=== PATIENT | female | born 1985 | race Caucasian/White ===

== ENCOUNTER 2019-04-30 20:07 | Emergency (ER) | payer BC, OTHER ==
[2019-04-30] MEDS ORDERED: Ondansetron ODT 4 MG TAB ONE (20:24)
[2019-04-30] MEDS ORDERED: Loperamide HCl 2 MG CAP ONE (20:24)
== END 2019-04-30 20:35 | disposition home or self-care (01) ==
LOC: MADERS 20:07
DX: K52.9 Noninfective gastroenteritis and colitis, unspecified (principal); E78.00 Pure hypercholesterolemia, unspecified; E11.9 Type 2 diabetes mellitus without complications; F41.9 Anxiety disorder, unspecified
CPT/HCPCS: 99283; Q0162

== ENCOUNTER 2020-04-20 20:18 | Emergency (ER) | payer BC ==
[2020-04-20] MEDS ORDERED: Lidocaine 1% 20 ML MDV ONE (20:33)
[2020-04-20] MEDS ORDERED: Boostrix 0.5 ML VIAL ONE (20:33)
[2020-04-20] MEDS ORDERED: Bacitracin 1 PK ONE (21:18)
== END 2020-04-20 21:25 | disposition home or self-care (01) ==
LOC: MADERS 20:18
DX: S61.213A Laceration without foreign body of left middle finger without damage to nail, initial encounter (principal); E11.9 Type 2 diabetes mellitus without complications; F41.9 Anxiety disorder, unspecified; W26.0XXA Contact with knife, initial encounter
CPT/HCPCS: 12001; 90471; 90715

== ENCOUNTER 2021-02-23 11:55 | Emergency (ER) | payer BC ==
[2021-02-23] MEDS ORDERED: Boostrix 0.5 ML (Tdap) VIAL ONE (12:44)
[2021-02-23] MEDS ORDERED: Triple Antibiotic Oint 1 GM Packet ONE (12:44)
== END 2021-02-23 12:52 | disposition home or self-care (01) ==
LOC: MADERS 11:55
DX: S91.332A Puncture wound without foreign body, left foot, initial encounter (principal); E11.9 Type 2 diabetes mellitus without complications; E28.2 Polycystic ovarian syndrome; Z79.84 Long term (current) use of oral hypoglycemic drugs; W45.0XXA Nail entering through skin, initial encounter
CPT/HCPCS: 90471; 90715

== ENCOUNTER 2021-06-17 14:08 | Emergency (ER) | payer BC ==
[~2021-06-17 14:08] MED LIST: Iopamidol 370 76% 100 ML VIAL ONE
[2021-06-17] MEDS ORDERED: Sodium Chloride 0.9% 1,000 ML ONE (18:03)
[2021-06-17] MEDS ORDERED: Pantoprazole 40 MG VIAL ONE (18:03)
[2021-06-17] MEDS ORDERED: Ondansetron PF 4 MG/2 ML Vial ONE (18:03)
[2021-06-17 18:13] LABS: Bilirubin Negative (Negative); Blood, Urine Negative (Negative); Glucose, Urine (Dipstick) 500 mg/dL (Negative); Ketone, Urine Trace mg/dL (Negative); Leukocyte Trace (Negative); Nitrite Negative (Negative); Protein, Urine (Dipstick) Trace mg/dL (Neg-Trace); Urobilinogen 0.2 mg/dL (Less than 2); pH, Urine 5.5 (5.0-9.0)
[2021-06-17 18:26] LABS: Clarity Hazy (Clear); Specific Gravity, Urine 1.033 (1.002-1.036)
[2021-06-17 18:34] LABS: Bacteria/HPF 1+ HPF (None Seen); RBC/HPF 0-3 HPF (0-3)
[2021-06-17 18:37] LABS: ALT (SGPT) 20 U/L (8-55); AST (SGOT) 18 U/L (5-34); Albumin 3.7 g/dL (3.5-5.0); Alkaline Phosphatase 80 U/L (40-110); Anion Gap 13 mmol/L (10-20); BUN (Urea Nitrogen) 10 mg/dL (7.0-18.7); Bilirubin, Total 0.2 mg/dL (0.2-1.2); Calc. Creatinine Clearance 0 mL/min (70-130); Calcium 9.2 mg/dL (7.8-10.44); Carbon Dioxide 24 mmol/L (22-29); Chloride 104 mmol/L (98-107); Globulin 3.6 g/dL (2.4-3.5); Glucose 237 mg/dL (70-105); Lipase 23 U/L (8-78); Protein, Total 7.3 g/dL (6.0-8.3); Sodium 137 mmol/L (136-145)
[2021-06-17 18:38] LABS: #Basophils 0.1 thou/uL (0.0-0.2); #Eosinphils 0.2 thou/uL (0.0-0.7); #Lymphocytes 4.5 thou/uL (1.20-3.40); #Monocytes 0.6 thou/uL (0.11-0.59); #Neutrophils 8.7 thou/uL (1.40-6.50); %Basophils 0.6 % (0.0-1.0); %Eosinophils 1.2 % (0.0-10.0); %Lymphocytes 32.1 % (21.0-51.0); %Monocytes 4.2 % (0.0-10.0); %Neutrophils 61.9 % (42.0-75.0); Anisocytosis SLIGHT = 6-15 cells (100X) (0-5/hpf); CRP (Inflammatory) 1.74 mg/dL (= or < 0.5); Hemoglobin 12.9 g/dL (12.0-16.0); Hypochromia SLIGHT = 6-15 cells (100X) (0-5/hpf); MDiff Complete? YES; Mean Corpuscular HGB CONC 30.4 g/dL (32.0-36.0); Mean Corpuscular Hemoglobin 23.9 pg (27.0-31.0); Mean Corpuscular Volume 78.7 fL (78.0-98.0); Platelet Count 355 thou/uL (130-400); Platelet Morphology Comment Appears Adequate; RBC Distribution Width 14.7 % (11.5-14.5); Red Blood Cell (RBC) Count 5.37 mill/uL (4.20-5.40)
[2021-06-17 18:41] LABS: BHCG - Serum Negative (NEGATIVE); Pregs Control Background? CLEAR/WHITE (CLR/WHITE); Pregs Control Bar Appear? YES (CONTROL BAR)
[2021-06-17] MEDS ORDERED: metroNIDAZOLE 250 MG TAB ONE (19:59)
[2021-06-17] MEDS ORDERED: Piperacillin/Tazobactam 3.375 GM VIAL ONE (19:59)
[2021-06-17] MEDS ORDERED: Sodium Chloride 0.9% 100 ML ONE (20:00)
== END 2021-06-17 20:42 | disposition home or self-care (01) ==
LOC: MADERS 14:08
DX: I88.0 Nonspecific mesenteric lymphadenitis (principal); E11.9 Type 2 diabetes mellitus without complications
CPT/HCPCS: 71045; 74177; 80053; 81003; 81015; 82150; 82550; 83690; 84484; 84703; 85025; 86140; 93005; 96365; 96375; C9113; J2405; J2543; J3490; J7050; Q9967

== ENCOUNTER 2023-02-12 18:02 | Emergency (ER) | payer BC ==
[~2023-02-12 18:02] MED LIST changes: -Iopamidol 370 76% 100 ML VIAL ONE; +Iopamidol 370 76% 200 ML VIAL ONE; +Sodium Chloride 0.9% 100 ML BAG ONE
[2023-02-12] MEDS ORDERED: Sodium Chloride 0.9% 1,000 ML ONE (19:51)
[2023-02-12] MEDS ORDERED: Metoclopramide HCl 10 MG/2 ML VIAL ONE (19:51)
[2023-02-12 20:12] LABS: #Basophils 0.1 thou/uL (0.0-0.2); #Eosinphils 0.1 thou/uL (0.0-0.7); #Lymphocytes 0.9 thou/uL (1.20-3.40); #Monocytes 0.5 thou/uL (0.11-0.59); #Neutrophils 11.3 thou/uL (1.40-6.50); %Basophils 0.8 % (0.0-1.0); %Lymphocytes 6.8 % (21.0-51.0); %Monocytes 3.5 % (0.0-10.0); %Neutrophils 87.9 % (42.0-75.0); Hematocrit 43.8 % (36.0-47.0); Hemoglobin 13.6 g/dL (12.0-16.0); MDiff Complete? YES; Mean Corpuscular Hemoglobin 24.4 pg (27.0-31.0); Mean Corpuscular Volume 78.8 fl (78.0-98.0); Mean Platelet Volume 10.5 fL (7.4-10.4); Ovalocytes SLIGHT = 2-5 cells (100X) (0-1/hpf); Platelet Adequacy Comment Appears Adequate; Platelet Count 342 10x3/uL (130-400); RBC Distribution Width 15.4 % (11.5-14.5); Red Blood Cell (RBC) Count 5.56 mill/uL (4.20-5.40); White Blood Cell (WBC) Count 12.8 10x3/uL (4.8-10.8)
[2023-02-12 20:24] LABS: ALT (SGPT) 11 U/L (8-55); AST (SGOT) 16 U/L (5-34); Albumin 4.4 g/dL (3.5-5.0); Alkaline Phosphatase 74 U/L (40-110); Anion Gap 17 mmol/L (10-20); BUN (Urea Nitrogen) 11 mg/dL (7.0-18.7); Bilirubin, Total 0.5 mg/dL (0.2-1.2); Calc. Creatinine Clearance 0 mL/min (70-130); Carbon Dioxide 17 mmol/L (22-29); Chloride 108 mmol/L (98-107); Estimated GFR 92; Globulin 3.1 g/dL (2.4-3.5); Glucose 144 mg/dL (70-105); Potassium 4.9 mmol/L (3.5-5.1); Protein, Total 7.5 g/dL (6.0-8.3); Sodium 137 mmol/L (136-145)
[2023-02-12 20:30] LABS: Troponin I Less than 0.010 ng/mL (< 0.028)
[2023-02-12 20:47] LABS: SARS-CoV-2 NAA Rapid Test Not Detected (NotDetected)
[2023-02-12 21:16] LABS: Bilirubin Negative (Negative); Blood, Urine Negative (Negative); Glucose, Urine (Dipstick) >=1000 mg/dL (Negative); Ketone, Urine 40 mg/dL (Negative); Leukocyte Small (Negative); Nitrite Negative (Negative); Protein, Urine (Dipstick) Negative (Neg-Trace); Urobilinogen 0.2 mg/dL (Less than 2)
[2023-02-12] MEDS ORDERED: Acetaminophen 500 MG TAB ONE (21:16)
[2023-02-12 21:17] LABS: Pregnancy Test - Urine (BHCG) Negative (Negative); Pregu Control Background? CLEAR/WHITE (CLR/WHITE); Pregu Control Bar Appear? YES (CONTROL BAR)
[2023-02-12 21:19] LABS: Bacteria/HPF 2+ HPF (None Seen); CAUTI Indications for Culture Dysuria,urgency,freq; Clarity Cloudy (Clear); RBC/HPF 0-3 HPF (0-3); WBC/HPF 21-50 HPF (0-3)
[2023-02-12 21:20] LABS: Urine Culture Reflex Yes Yes
== END 2023-02-12 23:21 | disposition home or self-care (01) ==
LOC: MADERS 18:02
DX: N39.0 Urinary tract infection, site not specified (principal); I10 Essential (primary) hypertension; E78.5 Hyperlipidemia, unspecified; Z79.899 Other long term (current) drug therapy; Z79.84 Long term (current) use of oral hypoglycemic drugs; Z20.822 Contact with and (suspected) exposure to COVID-19
CPT/HCPCS: 71275; 74177; 80053; 81001; 81025; 84484; 85025; 85379; 87086; 93005; 96361; 96374; J2765; J7050; U0002

== ENCOUNTER 2024-04-06 17:27 | Emergency (ER) | payer BC ==
[2024-04-06] MEDS ORDERED: Ketorolac Tromethamine 30 MG (1 mL) VIAL ONE (18:03)
[2024-04-06] MEDS ORDERED: Methocarbamol 500 MG TAB ONE (18:06)
[2024-04-06] MEDS ORDERED: Diazepam 5 MG TAB ONE (19:00)
== END 2024-04-06 19:05 | disposition home or self-care (01) ==
LOC: MADERS 17:27
DX: M54.50 Low back pain, unspecified (principal); I10 Essential (primary) hypertension; E11.9 Type 2 diabetes mellitus without complications; E78.5 Hyperlipidemia, unspecified; Z79.84 Long term (current) use of oral hypoglycemic drugs; Z79.899 Other long term (current) drug therapy; Z55.6 Problems related to health literacy
CPT/HCPCS: 96372; 99283; J1885

== ENCOUNTER 2025-06-20 12:47 | Emergency (ER) | payer BC ==
[2025-06-20] MEDS ORDERED: Orphenadrine Citrate 60 MG/2 ML VIAL ONE (13:05)
[2025-06-20] MEDS ORDERED: Aspirin Chewable 81 MG TAB ONE (13:05)
[2025-06-20 13:12] LABS: #Basophils 0.1 thou/uL (0.0-0.2); #Eosinophils 0.1 thou/uL (0.0-0.7); #Lymphocytes 2.4 thou/uL (1.20-3.40); #Monocytes 0.4 thou/uL (0.11-0.59); #Neutrophils 7.2 thou/uL (1.40-6.50); %Basophils 0.7 % (0.0-1.0); %Eosinophils 1.0 % (0.0-10.0); %Lymphocytes 23.5 % (21.0-51.0); %Monocytes 4.3 % (0.0-10.0); %Neutrophils 70.4 % (42.0-75.0); Hematocrit 39.0 % (36.0-47.0); Hemoglobin 12.0 g/dL (12.0-16.0); Mean Corpuscular Hemoglobin 26.4 pg (27.0-31.0); Mean Corpuscular Volume 85.8 fl (78.0-98.0); Platelet Count 285 10x3/uL (130-400); Red Blood Cell (RBC) Count 4.54 mill/uL (4.20-5.40); White Blood Cell (WBC) Count 10.3 10x3/uL (4.8-10.8)
[2025-06-20 13:17] LABS: Glucose, Urine (Dipstick) Negative (Negative); Leukocyte Trace (Negative); Protein, Urine (Dipstick) Negative (Neg-Trace); Specific Gravity, Urine Greater/Equal 1.030 (1.005-1.030)
[2025-06-20 13:21] LABS: BHCG - Serum Negative (NEGATIVE); Pregs Control Background? CLEAR/WHITE (CLR/WHITE); Pregs Control Bar Appear? YES (CONTROL BAR)
[2025-06-20 13:24] LABS: ALT (SGPT) 8 U/L (Less than 34); AST (SGOT) 19 U/L (11-34); Albumin 3.9 g/dL (3.1-4.5); Alkaline Phosphatase 71 U/L (40-110); Anion Gap 14 mmol/L (10-20); BUN (Urea Nitrogen) 12 mg/dL (7.0-18.7); Bilirubin, Total 0.5 mg/dL (0.3-1.2); Calc. Creatinine Clearance 0 mL/min (70-130); Calcium 8.9 mg/dL (7.8-10.44); Carbon Dioxide 23 mmol/L (22-29); Chloride 105 mmol/L (98-107); Globulin 3.4 g/dL (2.4-3.5); Glucose 126 mg/dL (70-105); Potassium 3.9 mmol/L (3.5-5.1); Sodium 138 mmol/L (136-145)
[2025-06-20 13:25] LABS: CAUTI Indications for Culture Fever or rigors; RBC/HPF None Seen HPF (0-3)
[2025-06-20 13:26] LABS: Bacteria/HPF 4+ HPF (None Seen); Urine Culture Reflex No No
[2025-06-20 13:30] LABS: Troponin I Less than 0.010 ng/mL (< 0.028)
[2025-06-20 15:31] LABS: Troponin I Less than 0.010 ng/mL (< 0.028)
== END 2025-06-20 15:44 | disposition home or self-care (01) ==
LOC: MADERS 12:47
DX: R07.89 Other chest pain (principal); I10 Essential (primary) hypertension; E11.9 Type 2 diabetes mellitus without complications
CPT/HCPCS: 71045; 80053; 81001; 84484; 84703; 85025; 93005; 96374; J2360